=== PATIENT | male | born 1985 | race Caucasian/White ===

== ENCOUNTER 2019-08-27 13:55 | Emergency (ER) | payer OTHER, SELFPAY ==
[2019-08-27 14:00] VITALS: BP 134/81; PULSE 77; RESP 16; TEMP 36.8; O2SAT 98
--- NOTE | 2019-08-27 14:17 | ED.WOUNDLAC ---
HPI - Wound/Laceration General Chief Complaint: Wound/Laceration Stated Complaint: cut arm on metal Time Seen by Provider: 08/27/19 14:15 Source: patient Mode of arrival: ambulatory Limitations: no limitations History of Present Illness HPI narrative: 33-year-old man who was previously well comes in today complaining of a laceration to his right forearm. 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 Patient states he has no numbness, tingling or decreased range of motion. He is unsure if there were foreign bodies in the wound. Onset (ago): minute(s) (30) Extremity Location: Right: arm Place: work Patient tetanus UTD: No Context: accidental Associated symptoms: pain Treatments prior to arrival: bandage Review of Systems Constitutional: Constitutional: Denies chills and Denies fever(s) ENT: Denies dysphagia, Denies nasal congestion and Denies sore throat Cardiovascular: Cardiovascular: Denies chest pain and Denies radiating jaw, neck or arm pain Respiratory: Respiratory: Denies cough, Denies dyspnea and Denies wheezing Gastrointestinal: Gastrointestinal: Denies nausea and Denies vomiting Musculoskeletal: Musculoskeletal: Denies arthralgias and Denies joint swelling Integumentary/Breasts: Skin/Breast: Reports as per HPI, Denies pruritus, Denies erythema and Denies rash Neurologic: Denies vertigo, Denies dizziness and Denies syncope Hematologic/Lymphatic: Hematologic/Lymphatic: Denies easy bleeding and Denies easy bruising Allergic/Immunologic: Allergic/Immunologic: Denies lip swelling and Denies wheezing [facility] Surgical History Surgical History Hx of shoulder surgery Hx of tonsillectomy cyst removal Social History Social History Smoking status: Current some day smoker Alcohol intake: current Alcohol use details: Rare Substance use: never Living arrangements: with family Exam Const: General: healthy appearing, no acute distress and alert Orientation/consciousness: patient oriented x3 Limitations: no limitations Eyes: Conjunctivae: conjunctivae normal Pupils: Equal, round and reactive pupils present EOM: EOMs intact bilaterally Resp: Effort & Inspection: normal respiratory effort and not labored Auscultation: clear to auscultation bilaterally, no rales, no rhonchi and no wheezes Cardio: Rate: regular rate Rhythm: regular rhythm Heart sounds: no murmurs Skin: General skin exam: normal color, no jaundice and no pallor Rashes: no rashes Other: 10 cm longitudinal laceration on the right volar forearm. For much of the laceration it is partial thickness. Neuro: General: patient oriented x3, no focal motor deficits and CN's II-XI intact bilaterally Speech: normal speech Gait exam (Neuro): Normal gait present Extrem: General: no clubbing, cyanosis or edema Psych: Appearance: grossly normal and well kempt Mental Status: mental status grossly normal Affect: normal affect Attitude: cooperative Thought content: Yes Normal thought content present Procedures Laceration Laceration 1: Date: 08/27/19 Time: 14:23 Site: upper extremity Side (If applicable): right Size (cm): 6 Description: linear Depth: simple, single layer Local Anesthetic: lidocaine 1% Pre-repair: wound explored and irrigated ====== Skin Level ====== Skin layer closed with: nylon Size (cm): 5-0 Number of sutures: 7 Technique: simple, interrupted ====== Subcutaneous Layer ====== ====== Muscle Layer ====== ====== Tendon Layer ====== Discharge Plan Discharge Clinical Impression: Laceration Patient Disposition: Home, Self-Care Condition: Stable Instructions: Care For Your Stitches (ED), Laceration (ED) Additional Inst
[2019-08-27] MEDS: TETANUS,DIPHTHERIA,AC PERTUSSIS ADULT 0.5 ML (ADACEL) IM (14:28)
--- NOTE | 2019-08-27 14:48 | PC.NURSE ---
PT. TOLERATED SUTURES WELL. 7 4'0 [address] PT[address]. NUMBED THE AREA WITH LIDOCAINE AND EPI AND PT. VERBALIZES NO PAIN AT THE SITE.
== END 2019-08-27 15:00 | disposition home or self-care (01) ==
PROVIDERS: Emergency Provider Emergency Medicine; PCP Internal Medicine
DX: S51.811A Laceration without foreign body of right forearm, initial encounter (principal); W45.8XXA Other foreign body or object entering through skin, initial encounter
CPT/HCPCS: 12002; 90471; 90715; 99282

== ENCOUNTER 2019-12-28 14:09 | Emergency (ER) | payer BC, SELFPAY ==
--- NOTE | ~2019-12-28 | CT_ITS ---
EXAMINATION: CT abdomen pelvis wo con DATE: 12/28/2019 14:48 INDICATION: Left flank pain. TECHNIQUE: Computed tomography (CT) of the abdomen and pelvis was performed without intravenous contr ast. Automated exposure control and iterative reconstruction technique were employed. The dose-length product was 176.31 mGy-cm. COMPARISON: None. FINDINGS: The visualized portions of the lung bases demonstrate a 4 mm nodule in right middle lobe, l ikely benign. No pleural effusion. The heart size is normal. No pericardial effusion. The liver, gall bladder, spleen, pancreas, adrenal glands, and kidneys are normal. There is no urolithiasis. There is diverticulosis of the colon without evidence of diverticulitis. The appendix is normal. There are no dilated loops of bowel. There are no pathologically enlarged lymph nodes. There is no free intraperi toneal fluid. The bones are unremarkable. IMPRESSION: 1. No urolithiasis. Reviewed, dictated and finalized at location [facility]. [facility] IMPRESSION: 1. No urolithiasis.
[2019-12-28 14:23] VITALS: BP 141/72; PULSE 85; RESP 18; TEMP 36.6; O2SAT 100
--- NOTE | 2019-12-28 14:41 | PC.NURSE ---
Pt unable to provide urine sample
[2019-12-28] MEDS: KETOROLAC 30 MG/ML VIAL (*BKC) IV PUSH (14:52)
[2019-12-28] MEDS: ONDANSETRON INJ 4 MG/2 ML VIAL IV PUSH (14:52)
[2019-12-28] MEDS: SODIUM CHLORIDE 0.9% IV 1,000 ML 999 ML IV CONT (15:05)
[2019-12-28 15:06] LABS: Basophils Absolute Auto 0.04 K/mm3 (0.00-0.10); Basophils Percent Auto 0.5 % (0.0-1.0); Eosinophils Absolute Auto 0.06 K/mm3 (0.02-0.50); Eosinophils Percent Auto 0.7 % (1.0-6.0); Hematocrit 39.4 % (40.0-54.0); Hemoglobin 13.7 g/dL (14.0-18.0); Immature Granulocyte Absolute 0.04 K/mm3 (0.00-0.00); Immature Granulocyte Percent A 0.5 % (0.0-0.0); Lymphocytes Absolute Auto 1.11 K/mm3 (1.10-4.50); Lymphocytes Percent Auto 12.6 % (18.0-42.0); Mean Corpuscular HGB Conc 34.8 g/dL (32.0-36.0); Mean Corpuscular Hemoglobin 30.2 pg (27.0-31.0); Mean Platelet Volume 9.4 fl (8.7-11.0); Monocytes Absolute Auto 0.48 K/mm3 (0.10-0.90); Monocytes Percent Auto 5.4 % (2.0-11.0); Neutrophils Absolute Auto 7.1 K/mm3 (1.7-7.2); Neutrophils Percent Auto 80.3 % (50.0-70.0); Platelet Count Result 226 K/mm3 (150-420); Red Blood Count 4.53 M/mm3 (4.70-6.10); Red Cell Distribution Width 11.6 % (11.6-14.4); White Blood Count 8.8 K/mm3 (4.8-10.8)
[2019-12-28 15:19] LABS: Alanine Aminotransferase 22 U/L (16-63); Albumin Level 3.9 g/dL (3.4-5.0); Alkaline Phosphatase 65 U/L (46-116); Anion Gap 6 mmol/L (8-16); Aspartate Amino Transferase < 10 U/L (15-37); Bilirubin,Total 1.1 mg/dL (0.00-1.00); Blood Urea Nitrogen 14 mg/dL (7-18); Calcium 8.6 mg/dL (8.5-10.1); Carbon Dioxide 30 mmol/L (21-32); Chloride 107 mmol/L (98-108); Estimated CRCL calculation 91 ml/min; Estimated Glomerular Filt Rate > 60; Glucose 92 mg/dL (70-99); Lipase 49 U/L (73-393); Osmolality Calculated 296 mOsm/kg (285-295); Potassium 4.1 mmol/L (3.5-5.1); Sodium 143 mmol/L (136-145); Total Protein 6.8 g/dL (6.4-8.2)
--- NOTE | 2019-12-28 15:42 | PC.NURSE ---
Pt continues to state that he is unable to provide urine sample.
--- NOTE | 2019-12-28 16:21 | PC.NURSE ---
urine obtained and sent to lab
[2019-12-28 16:22] LABS: Add Urine Microscopic? YES; Appearance Urine Clear (Clear); Bilirubin Urine Negative (Negative); Blood Urine 3+ (Negative); Color Urine Yellow (Yellow); Glucose Urine UA Negative (Negative); Ketones Urine Negative (Negative); Leukocyte Esterase Ur Negative (Negative); Nitrate Urine Negative (Negative); Protein Urine Negative (Negative); Specific Grav Ur 1.025 (1.010-1.020); Urobilinogen Urine 0.2 mg/dL (0.2-1.0)
[2019-12-28 16:27] LABS: RBC Urine 51-75 /hpf (0-2); Squamous Epithelial Cell Urine None seen /hpf (Few); WBC Urine 0-3 /hpf (0-3)
[2019-12-28 16:28] LABS: Bacteria Urine 2+ /hpf; Mucus Urine Moderate /lpf
--- NOTE | 2019-12-28 16:31 | ED.BACK ---
HPI - Back Pain/Injury General Chief Complaint: Back Pain/Injury Stated Complaint: back pain near ribs on L side when urinating Source: patient Mode of arrival: ambulatory Limitations: no limitations History of Present Illness HPI Narrative: this is a 34-year-old gentleman with no significant past medical history presents with left flank pain radiating into his left groin area pain is rated about a 6/10 has a history of low back pain. Currently there is no nausea vomiting no abdominal pain no diarrhea constipation no nausea vomiting does have some dysuria. MD elicited complaint: back pain Pertinent past history: prior back pain Onset (ago): hour(s) Timing: intermittent Severity: moderate Pain scale (0-10): 6 Similar Symptoms Previously: Yes Quality: dull Radiation: groin Exacerbating factors: none Relieving factors: none Associated symptoms: increased urinary frequency and other ( left flank pain) Related Data Allergies Allergy/AdvReac Type Severity Reaction Status Date / Time No Known Allergies Allergy Verified 12/28/19 14:43 Review of Systems Review of Systems: All systems reviewed & are unremarkable except as noted in HPI and below PMFSH Past Medical History Medical History Chronic back pain Surgical History Surgical History Hx of shoulder surgery Hx of tonsillectomy cyst removal Social History Social History Smoking status: Current some day smoker Alcohol intake: current Substance use: never Exam Const: General: no acute distress and alert Orientation/consciousness: patient oriented x3 HENMT: Head: normal to inspection Eyes: Conjunctivae: conjunctivae normal Pupils: Equal, round and reactive pupils present EOM: EOMs intact bilaterally Direct Ophthalmoscopy: no photophobia Neck: Neck: normal visual inspection, no lymphadenopathy and no meningeal signs Chest: Chest palpation & inspection: normal inspection of the chest Resp: Effort & Inspection: normal respiratory effort Auscultation: clear to auscultation bilaterally Cardio: Rate: regular rate Rhythm: regular rhythm GI: Auscultation: normal bowel sounds Urinary Catheter: Urinary Catheter: urine cloudy Skin: General skin exam: normal color Rashes: no rashes Neuro: General: patient oriented x3, moves all extremities and no meningeal signs Psych: Mental Status: mental status grossly normal Course Course Emergency Course: patient after Toradol states that he has some improvement in his left flank pain Vital Signs Vital signs: Vital Signs Temperature 36.6 C 12/28/19 14:23 Pulse Rate 85 12/28/19 14:23 Respiratory Rate 18 12/28/19 14:23 Blood Pressure 141/72 H 12/28/19 14:23 Pulse Oximetry 100 12/28/19 14:23 Temperature 36.6 C 12/28/19 14:23 Pulse Rate 85 12/28/19 14:23 Respiratory Rate 18 12/28/19 14:23 Blood Pressure 141/72 H 12/28/19 14:23 Pulse Oximetry 100 12/28/19 14:23 MDM - Back Pain/Injury Lab Data Result diagrams: 12/28/19 15:00 12/28/19 15:00 Labs: Lab Results 12/28/19 12/28/19 12/28/19 Range/Units 15:00 15:00 15:00 WBC 8.8 (4.8-10.8) K/mm3 RBC 4.53 L (4.70-6.10) M/mm3 Hgb 13.7 L (14.0-18.0) g/dL Hct 39.4 L (40.0-54.0) % MCV 87.0 (78.0-102.0) fL MCH 30.2 (27.0-31.0) pg MCHC 34.8 (32.0-36.0) g/dL RDW 11.6 (11.6-14.4) % Plt Count 226 (150-420) K/mm3 MPV 9.4 (8.7-11.0) fl Immature Gran % (Auto) 0.5 H (0.0-0.0) % Neut % (Auto) 80.3 H (50.0-70.0) % Lymph % (Auto) 12.6 L (18.0-42.0) % Childress % (Auto) 5.4 (2.0-11.0) % Eos % (Auto) 0.7 L (1.0-6.0) % Baso % (Auto) 0.5 (0.0-1.0) % Lymph # (Auto) 1.11 (1.10-4.50) K/mm3 Childress # (Auto) 0.48 (0.10-0.90) K/mm3 Eos # (Auto) 0.06 (0.02-0.50) K
[2019-12-28 16:57] VITALS: BP 92/45; PULSE 60; RESP 16; O2SAT 100
== END 2019-12-28 16:55 | disposition home or self-care (01) ==
PROVIDERS: Emergency Provider Emergency Medicine; PCP Internal Medicine
DX: N39.0 Urinary tract infection, site not specified (principal)
CPT/HCPCS: 36415; 74176; 80053; 81001; 83690; 85025; 96360; 96374; 96375; 99283; 99284; A9270; J1885; J2405; J7030

== ENCOUNTER 2020-01-10 15:01 | Outpatient (CLI) | payer BC, SELFPAY ==
--- NOTE | ~2020-01-10 | CT_ITS ---
EXAMINATION: CT chest w con DATE: 01/10/2020 15:39 INDICATION: Right middle lobe 4 mm lung nodule diagnosed on 12/28/2019 CT abdomen pelvis examination TECHNIQUE: Computed tomography (CT) of the chest was performed with 75 cc Omnipaque 350 intravenous c ontrast. Automated exposure control and iterative reconstruction technique were employed. Exam dose: 156.62 mGy-cm total exam DLP. COMPARISON: 12/28/2019 CT abdomen pelvis FINDINGS: There is mild bilateral apical scarring. There is a 4 mm pleural-based anterolateral middle lobe nodule with high attenuation, consistent with benign process, likely calcified pulmonary granuloma (series 4 image 83). Another pleural-based 3 mm noncalcified opacity is noted in the anterolateral middle lobe (image 91). No pulmonary infiltrate or consolidation. No hilar or mediastinal mass lesion or lymphadenopathy. No thoracic aortic aneurysm or dissection. Normal heart size. No pericardial or pleural effusion. Included upper abdominal structures including adrenal glands are unremarkable. IMPRESSION: 4 mm and 3 mm pleura-based middle lobe nodules, likely benign Reviewed, dictated and finalized at [facility]. Reviewed, dictated and finalized at location B. [employer]
== END 2020-01-10 15:02 | disposition home or self-care (01) ==
LOC: CHSIMG 15:02
PROVIDERS: PCP Internal Medicine; Visit Provider Internal Medicine
DX: R91.1 Solitary pulmonary nodule (principal)
CPT/HCPCS: 71260; Q9965

== ENCOUNTER 2020-01-24 12:12 | Outpatient (CLI) | payer BC, SELFPAY ==
[2020-01-24 13:01] LABS: SARS-CoV-2 Ag Negative (Negative)
== END 2020-01-24 12:13 | disposition home or self-care (01) ==
LOC: CHSLAB 12:15
PROVIDERS: PCP Internal Medicine; Visit Provider Internal Medicine
DX: Z20.828 Contact with and (suspected) exposure to other viral communicable diseases (principal)
CPT/HCPCS: 87426

== ENCOUNTER 2020-07-02 13:15 | Outpatient (CLI) | payer BC, SELFPAY ==
[2020-07-02 14:06] LABS: SARS-CoV-2 RNA PCR Negative (Negative)
== END 2020-07-02 13:16 | disposition home or self-care (01) ==
LOC: CHSLAB 13:18
PROVIDERS: PCP Internal Medicine; Visit Provider Internal Medicine
DX: J02.9 Acute pharyngitis, unspecified (principal); R19.7 Diarrhea, unspecified; Z20.822 Contact with and (suspected) exposure to COVID-19
CPT/HCPCS: 87081; 87880; C9803; U0003; U0005

== ENCOUNTER 2020-08-21 12:16 | Emergency (ER) | payer OTHER, SELFPAY ==
[2020-08-21 12:25] VITALS: BP 114/66; PULSE 55; RESP 16; TEMP 36.7; O2SAT 99
--- NOTE | 2020-08-21 12:55 | PC.NURSE ---
RN ASSISTED ERP GET FOREIGN BODY OUT OF LEFT EYE
--- NOTE | 2020-08-21 13:48 | ED.EYEPROB ---
HPI - Eye Problem General Chief complaint: Eye Problems Stated complaint: Metal shaving in left eye Time Seen by Provider: 08/21/20 12:35 Source: patient Mode of arrival: ambulatory Limitations: no limitations History of Present Illness HPI Narrative: Patient comes in with sensation he has something in his left eye. 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 Then he noticed he had gotten something in his left eye. 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 Severity: moderate Severity scale (1-10): 5 If Pain, Quality: aching Treatments Prior to Arrival: irrigated eye Related Data Home Medications Medication Instructions Recorded Confirmed dicyclomine 20 mg PO DAILY PRN 08/21/20 08/21/20 Allergies Allergy/AdvReac Type Severity Reaction Status Date / Time No Known Allergies Allergy Verified 12/28/19 14:43 Review of Systems Constitutional: Constitutional: Reports no additional constitutional complaints Eyes: Eyes: Reports as per HPI ENT: Reports system reviewed and no additional complaints, except as documented Cardiovascular: Cardiovascular: Reports no additional cardiovascular complaints Respiratory: Respiratory: Reports no additional respiratory complaints Gastrointestinal: Gastrointestinal: Reports no additional gastrointestinal complaints Genitourinary: Genitourinary: Reports no additional male genitourinary complaints Musculoskeletal: Musculoskeletal: Reports no additional musculoskeletal complaints Integumentary/Breasts: Skin/Breast: Reports system reviewed and no additional complaints, except as docu Neurologic: Reports system reviewed and no additional complaints, except as documented Psychiatric: Psychiatric: Reports no additional psychiatric complaints Endocrine: Endocrine: Reports no additional endocrine complaints Hematologic/Lymphatic: Hematologic/Lymphatic: Reports no additional hematologic/lymphatic complaints Allergic/Immunologic: Allergic/Immunologic: Reports no additional allergic/immunologic complaints PMFSH Past Medical History Medical History Chronic back pain Surgical History Surgical History Hx of shoulder surgery Hx of tonsillectomy cyst removal Family History Family History Other No significant family history Social History Social History Smoking status: Current some day smoker Alcohol intake: current Substance use: never Exam Const: General: healthy appearing, no acute distress and alert Orientation/consciousness: patient oriented x3 HENMT: Head: normal to inspection Ears: external ears normal and TM's normal bilaterally General nose exam: Normal external nose present Face and sinus: normal facial exam Mouth: Yes Normal oral and palatal mucosa present Throat: posterior oropharynx normal Eyes: Other: left eye is inflamed with a conjunctivitis. Eye exam with fluorescein was performed. We were able to remove two small foreign bodies, which appeared to be rust. After this, the aye appeared to feel much better, ad he was discharged. Neck: Neck: normal visual inspection Chest: Chest palpation & inspection: normal inspection of the chest Resp: Effort & Inspection: normal respiratory effort Auscultation: clear to auscultation bilaterally Cardio: Rate: regular rate Rhythm: regular rhythm GI: GI Palp: Yes Soft to palpation (nontender) Skin: General skin exam: normal color Neuro: General: patient oriented x3 and moves all extremities Extrem: General: n
[2020-08-21 14:05] VITALS: RESP 15
== END 2020-08-21 14:05 | disposition home or self-care (01) ==
PROVIDERS: Emergency Provider Emergency Medicine; PCP Internal Medicine
DX: T15.92XA Foreign body on external eye, part unspecified, left eye, initial encounter (principal); S05.02XA Injury of conjunctiva and corneal abrasion without foreign body, left eye, initial encounter
CPT/HCPCS: 99283; A9270

== ENCOUNTER 2020-11-05 14:02 | Emergency (ER) | payer OTHER, SELFPAY ==
--- NOTE | ~2020-11-05 | XR_ITS ---
EXAMINATION: XR finger 4th LT min 2V EXAM DATE: 11/05/2020 14:35 INDICATION: Smashed @ proximal 4th digit today. TECHNIQUE: Left 4th finger frontal, lateral and oblique projections obtained and reviewed. There i s no prior study for comparison. FINDINGS: Acute closed posttraumatic left 4th tuft fracture. There is overlying soft tissue swelling . No other suspicious findings. IMPRESSION: Left 4th tuft fracture. Reviewed, dictated and finalized at location [facility]. IMPRESSION: Left 4th tuft fracture.
[2020-11-05 14:14] VITALS: BP 118/76; PULSE 86; RESP 20; TEMP 36.6; O2SAT 98
--- NOTE | 2020-11-05 14:47 | ED.UPPEXIN ---
HPI - Extremity Injury (Upper) General Chief Complaint: Extremity Injury, Upper Stated Complaint: smashed finger Source: patient Mode of arrival: ambulatory Limitations: no limitations History of Present Illness HPI narrative: this is a 35-year-old gentleman that presents with an injury to the distal end of his 4th left finger he smashed in a vice currently there is some swelling with some bruising has good range of motion and movement in his finger with no numbness or tingling. complaint: injury to: left Onset (ago): hour(s) Other Extremity Injury: Left: fingers ( 4th finger swelling and bruising) Other injuries: none Handedness: right Place: work Severity: mild Related Data Home Medications Medication Instructions Recorded Confirmed No Home Medications 11/05/20 11/05/20 Allergies Allergy/AdvReac Type Severity Reaction Status Date / Time No Known Allergies Allergy Verified 11/05/20 14:20 Review of Systems Review of Systems: All systems reviewed & are unremarkable except as noted in HPI and below PMFSH Past Medical History Medical History Chronic back pain Surgical History Surgical History Hx of shoulder surgery Hx of tonsillectomy cyst removal Family History Family History Other No significant family history Social History Social History Smoking status: Current some day smoker Alcohol intake: current Alcohol use details: Rare Substance use: never Exam Const: General: no acute distress Orientation/consciousness: patient oriented x3 HENMT: Head: normal to inspection Eyes: Conjunctivae: conjunctivae normal Pupils: Equal, round and reactive pupils present EOM: EOMs intact bilaterally Chest: Chest palpation & inspection: normal inspection of the chest Resp: Effort & Inspection: normal respiratory effort Auscultation: clear to auscultation bilaterally Cardio: Rate: regular rate Rhythm: regular rhythm GI: GI Palp: Yes Soft to palpation Percussion: Yes normal to percussion Skin: General skin exam: normal color Other: Bruising distal end and swelling distal end of left 4th finger Neuro: General: patient oriented x3 Extrem: Other: swelling and bruising distal end of left 4th finger Psych: Mental Status: mental status grossly normal Affect: normal affect Attitude: cooperative Course Course Emergency Course: x-ray reviewed with patient which shows a tuft fracture distal end of his left 4th finger will place in a splint advised patient to use Tylenol or Motrin for pain and swelling. Vital Signs Vital signs: Vital Signs Temperature 36.6 C 11/05/20 14:14 Pulse Rate 86 11/05/20 14:14 Respiratory Rate 20 11/05/20 14:14 Blood Pressure 118/76 11/05/20 14:14 Pulse Oximetry 98 11/05/20 14:14 Temperature 36.6 C 11/05/20 14:14 Pulse Rate 86 11/05/20 14:14 Respiratory Rate 20 11/05/20 14:14 Blood Pressure 118/76 11/05/20 14:14 Pulse Oximetry 98 11/05/20 14:14 Critical Care Time Critical Care Time Critical Care Time: No Discharge Plan Discharge Clinical Impression: Finger fracture, left Qualifiers: Encounter type: initial encounter Finger: ring finger Fracture type: closed Phalanx: distal Fracture alignment: nondisplaced Qualified Code(s): S62.665A - Nondisplaced fracture of distal phalanx of left ring finger, initial encounter for closed fracture Patient Disposition: Home, Self-Care Condition: Stable Instructions: Antibiotic Form, Finger Fracture (ED) Additional Instructions: advised use Tylenol or Motrin for pain and inflammation Prescriptions: No Action No Home Medications RF: 0 Follow-up/Referrals: Mango Real MD [Primary Care Provider] - Time of Disposition: 14:
[2020-11-05 14:50] VITALS: PULSE 84; RESP 20; O2SAT 98
== END 2020-11-05 14:58 | disposition home or self-care (01) ==
PROVIDERS: Emergency Provider Emergency Medicine; PCP Internal Medicine
DX: S62.665A Nondisplaced fracture of distal phalanx of left ring finger, initial encounter for closed fracture (principal); W22.8XXA Striking against or struck by other objects, initial encounter
CPT/HCPCS: 73140; 99282; 99283